=== PATIENT | female | born 1940 | race Caucasian/White ===

== ENCOUNTER 2019-08-19 11:15 | Inpatient (IN) | payer MEDICARE, BC ==
[2019-08-19] MEDS ORDERED: Sodium Chloride 0.9% 10 ML Syringe FLUSH PRN (11:28)
[2019-08-19] MEDS ORDERED: Diltiazem 50 MG/10 ML SDV IVPUSH ONE (11:29)
[2019-08-19] MEDS: Sodium Chloride 0.9% 1,000 ML IV SCH ×2 (11:54→19:42)
[2019-08-19] MEDS: Diltiazem 100 MG in Sodium Chloride 0.9% 100 ML IV SCH (11:58)
--- NOTE | 2019-08-19 13:31 | EDM.PDOC ---
ED HPI GENERAL MEDICAL PROBLEM - General Chief Complaint: Cardiovascular Problem Stated Complaint: RAPID PULSE, TIGHT THROAT Time Seen by Provider: 08/19/19 11:25 Source of Information: Reports: Patient History Limitations: Reports: No Limitations - History of Present Illness INITIAL COMMENTS - FREE TEXT/NARRATIVE: The patient presents with palpitations and shortness of breath. She said this has been coming and going for about a week. She has no chest pain but she did have like a lump in her throat with it. She has no fever, chills, cough, congestion, runny nose, abdominal pain, nausea or vomiting. She has known A- fib and is on blood thinners. Onset: Gradual Duration: Week(s): Severity: Mild Improves with: Reports: None Worsens with: Reports: None Associated Symptoms: Reports: No Other Symptoms - Related Data Allergies Allergy/AdvReac Type Severity Reaction Status Date / Time Hlsbcmk-Hug-Elf Reductase Allergy Severe Muscle Verified 08/19/19 11:31 Inhibitor Aches Home Meds: Home Meds Losartan Potassium 50 mg PO DAILY 09/30/15 [History] Apixaban [Eliquis] 5 mg PO BID 08/19/19 [History] Ezetimibe 10 mg PO DAILY 08/19/19 [History] Metoprolol Succinate 50 mg PO DAILY 08/19/19 [History] Zinc 50 mg PO DAILY 08/19/19 [History] Past Medical History Cardiovascular History: Reports: Afib, High Cholesterol, Hypertension Respiratory History: Reports: Pneumonia, Recurrent Psychiatric History: Reports: None Oncologic (Cancer) History: Reports: Basal Cell Carcinoma, Squamous Cell Carcinoma - Past Surgical History HEENT Surgical History: Reports: Adenoidectomy, Tonsillectomy ED ROS GENERAL - Review of Systems Review Of Systems: See Below Constitutional: Reports: No Symptoms HEENT: Reports: No Symptoms Respiratory: Reports: Shortness of Breath. Denies: Cough Cardiovascular: Reports: Palpitations. Denies: Chest Pain Endocrine: Reports: No Symptoms GI/Abdominal: Reports: No Symptoms : Reports: No Symptoms Musculoskeletal: Reports: No Symptoms ED EXAM, GENERAL - Physical Exam Exam: See Below Exam Limited By: No Limitations General Appearance: Alert, No Apparent Distress Ears: Normal External Exam Nose: Normal Inspection Head: Atraumatic, Normocephalic Neck: Normal Inspection Respiratory/Chest: No Respiratory Distress, Lungs Clear, Normal Breath Sounds Cardiovascular: Regular Rate, Rhythm, No Edema, No Murmur GI/Abdominal: Soft, Non-Tender, No Organomegaly, No Mass Back Exam: Normal Inspection Extremities: Normal Inspection EKG INTERPRETATION EKG Date: 08/19/19 Time: 11:46 Rhythm: A-Fib Rate (Beats/Min): 90 [place]: Normal QRS: Normal ST-T: Normal QT: Normal Course - Vital Signs Last Recorded V/S: Last Vital Signs Temp 98.0 F 08/19/19 11:27 Pulse 119 H 08/19/19 11:27 Resp 22 H 08/19/19 11:27 BP 149/110 H 08/19/19 11:27 Pulse Ox 95 08/19/19 11:27 - Orders/Labs/Meds Orders: Active Orders 24 hr Category Date Time Status Cardiac Monitoring [RC] . DIRECTED Care 08/19/19 11:28 Active EKG Documentation Completion [RC] STAT Care 08/19/19 11:29 Active Peripheral IV Care [RC] . DIRECTED Care 08/19/19 11:29 Active TSH [CHEM] Stat Lab 08/19/19 14:16 Ordered Diltiazem [Cardizem] 100 mg Med 08/19/19 11:30 Active Sodium Chloride 0.9% [Normal Saline] 100 ml IV TITRATE Sodium Chloride 0.9% [Normal Saline] 1,000 ml Med 08/19/19 11:30 Active IV ASDIRECTED Sodium Chloride 0.9% [Saline Flush] Med 08/19/19 11:28 Active 10 ml FLUSH ASDIRECTED PRN Peripheral IV Insertion Adult [OM.PC] Stat Oth 08/19/19 11:28 Ordered Medication Orders Diltiazem HCl 100 mg/ Sodium (Chloride) 100 mls @ 10 mls/hr IV TITRATE KYLEE; Protocol Last Admin: 08/19/19 11:58 Dose: 10 mg/hr, 10 mls/hr Sodium Chloride (Normal Saline) 1,000 mls @ 125 mls/hr IV ASDIRECTED KYLEE Last Admin: 08/19/19 11:54 Dose: 125 mls/hr Sodium Chloride (Saline Flush) 10 ml FLUSH ASDIRECTED PRN PRN Reason: Keep Vein Open Last Admin: 08/19/19 12:19 Dose: 10 ml Labs: Laboratory Tests 08/19/19 08/19/19 Range/Units 11:42 11:42 WBC 8.13 (3.98-10.04) K/mm3 RBC 5.06 (3.98-5.22) M/mm3 Hgb 15.7 (11.2-15.7) gm/dl Hct 47.1 H (34.1-44.9) % MCV 93.1 (79.4-94.8) fl MCH 31.0 (25.6-32.2) pg MCHC 33.3 (32.2-35.5) g/dl RDW Std Deviation 44.7 (36.4-46.3) fL Plt Count 194 (182-369) K/mm3 MPV 10.5 (9.4-12.3) fl Neut % (Auto) 74.0 H (34.0-71.1) % Lymph % (Auto) 17.3 L (19.3-51.7) % [place] % (Auto) 7.0 (4.7-12.5) % Eos % (Auto) 1.1 (0.7-5.8) Baso % (Auto) 0.5 (0.1-1.2) % Neut # (Auto) 6.01 (1.56-6.13) K/mm3 Lymph # (Auto) 1.41 (1.18-3.74) K/mm3 [place] # (Auto) 0.57 H (0.24-0.36) K/mm3 Eos # (Auto) 0.09 (0.04-0.36) K/mm3 Baso # (Auto) 0.04 (0.01-0.08) K/mm3 Sodium 140 (136-145) mEq/L Potassium 4.2 (3.5-5.1) mEq/L Chloride 104 (98-107) mEq/L Carbon Dioxide 24 (21-32) mEq/L Anion Gap 16.2 H (5-15) BUN 19 H (7-18) mg/dL Creatinine 0.7 (0.55-1.02) mg/dL Est Cr Clr Drug Dosing 60.01 mL/min Estimated GFR (MDRD) > 60 (>60) mL/min BUN/Creatinine Ratio 27.1 H (14-18) Glucose 121 H (83-115) mg/dL Calcium 9.1 (8.5-10.1) mg/dL Total Bilirubin 1.0 (0.2-1.0) mg/dL AST 30 (15-37) U/L ALT 54 (14-59) U/L Alkaline Phosphatase 91 (46-116) U/L Troponin I < 0.017 (0.00-0.056) ng/mL Total Protein 7.3 (6.4-8.2) g/dl Albumin 3.5 (3.4-5.0) g/dl Globulin 3.8 gm/dL Albumin/Globulin Ratio 0.9 L (1-2) Meds: Medications Generic Name Dose Route Start Last Admin Trade Name Freq PRN Reason Stop Dose Admin Diltiazem HCl 100 mg/ Sodium 100 mls @ 10 mls/hr 08/19/19 11:30 08/19/19 11: 58 Chloride IV 10 mg/hr TITRATE KYLEE 10 mls/hr Administration Protocol 10 MG/HR Sodium Chloride 1,000 mls @ 125 mls/hr 08/19/19 11:30 08/19/19 11:54 Normal Saline IV 125 mls/hr ASDIRECTED KYLEE Administration Sodium Chloride 10 ml 08/19/19 11:28 08/19/19 12:19 Saline Flush FLUSH 10 ml ASDIRECTED PRN Administration Keep Vein Open Discontinued Medications Generic Name Dose Route Start Last Admin Trade Name Freq PRN Reason Stop Dose Admin Diltiazem HCl 10 mg 08/19/19 11:29 08/19/19 11:54 Cardizem IVPUSH 08/19/19 11:30 10 mg ONETIME ONE Administration - Re-Assessments/Exams Free Text/Narrative Re-Assessment/Exam: 08/19/19 14:22 I ordered an IV NS at 125mL/hr, EKG, CXR and labs. Her EKG shows atrial fibrillation with no acute changes. Her CBC and CMP look good. Her troponin is negative. Her rate is better controlled but when she gets up her heart rate goes way up. I feel she needs to be admitted. I called Dr Mg and she agreed to the admission. Departure - Departure Time of Disposition: 14:25 Disposition: Admitted As Inpatient 64 Condition: Fair Clinical Impression: Atrial fibrillation with RVR Referrals: Shoshana Mitchell NP [Primary Care Provider] - Forms: ED Department Discharge Sepsis Event Note - Evaluation Sepsis Screening Result: No Definite Risk - Focused Exam Vital Signs: Vital Signs Temp Pulse Resp BP Pulse Ox 08/19/19 11:27 98.0 F 119 H 22 H 149/110 H 95 Date Exam was Performed: 08/19/19 Time Exam was Performed: 14:17 - My Orders Last 24 Hours: My Active Orders 08/19/19 11:28 Cardiac Monitoring [RC] . DIRECTED Sodium Chloride 0.9% [Saline Flush] 10 ml FLUSH ASDIRECTED PRN Peripheral IV Insertion Adult [OM.PC] Stat 08/19/19 11:29 EKG Documentation Completion [RC] STAT Peripheral IV Care [RC] . DIRECTED 08/19/19 11:30 Diltiazem [Cardizem] 100 mg Sodium Chloride 0.9% [Normal Saline] 100 ml IV TITRATE Sodium Chloride 0.9% [Normal Saline] 1,000 ml IV ASDIRECTED 08/19/19 14:16 TSH [CHEM] Stat - Assessment/Plan Last 24 Hours: My Active Orders 08/19/19 11:28 Cardiac Monitoring [RC] . DIRECTED Sodium Chloride 0.9% [Saline Flush] 10 ml FLUSH ASDIRECTED PRN Peripheral IV Insertion Adult [OM.PC] Stat 08/19/19 11:29 EKG Documentation Completion [RC] STAT Peripheral IV Care [RC] . DIRECTED 08/19/19 11:30 Diltiazem [Cardizem] 100 mg Sodium Chloride 0.9% [Normal Saline] 100 ml IV TITRATE Sodium Chloride 0.9% [Normal Saline] 1,000 ml IV ASDIRECTED 08/19/19 14:16 TSH [CHEM] Stat
--- NOTE | 2019-08-19 13:34 | CR ---
Chest: Portable view of the chest was obtained. Comparison: Prior chest x-ray of 09/30/15. Heart is slightly enlarged. Difficult to exclude minimal pulmonary vascular congestion. Lungs otherwise are clear. Bony structures are grossly intact. Impression: 1. Mild cardiomegaly. 2. Difficult to exclude minimal pulmonary vascular congestion. Diagnostic code #3 This report was dictated in MDT
[2019-08-19] MEDS ORDERED: Ondansetron 4 MG Tab.DIS PO PRN (14:33)
[2019-08-19] MEDS ORDERED: Acetaminophen 325 MG Tab PO PRN (14:33)
[2019-08-19] MEDS ORDERED: Ondansetron 4 MG/2 ML SDV IV PRN (14:33)
--- NOTE | 2019-08-19 14:43 | PCM.HP.2 ---
H&P History of Present Illness - General Date of Service: 08/19/19 Admit Problem/Dx: Admission Diagnosis/Problem Admission Diagnosis/Problem Afib, Atrial fibrillation - History of Present Illness Initial Comments - Free Text/Narative: This is an 78-year-old female with past medical history of paroxysmal atrial fibrillation and hypertension who comes to the ED complaining of worsening shortness of breath for the last 2 to 3 weeks. As per patient for the pa 2 to 3 weeks she has been feeling like her heart just "was not beating right" associated on occasion with a squeezing pressure in her throat that came and went. Once he noticed that this was not getting better she decided to come to the emergency department for further evaluation COVID risk - Has been participating in social distancing - Denies exposure to COVID patient - Denies fevers, chills, coughing, nasal congestion, abdominal discomfort, diarrhea. - Related Data Allergies/Adverse Reactions: Allergies Allergy/AdvReac Type Severity Reaction Status Date / Time [id number]-Pqd-Rbo Reductase Allergy Severe Muscle Verified 08/19/19 11:31 Inhibitor Aches Home Medications: Home Meds Losartan Potassium 50 mg PO DAILY 09/30/15 [History] Apixaban [Eliquis] 5 mg PO BID 08/19/19 [History] Ezetimibe 10 mg PO DAILY 08/19/19 [History] Metoprolol Succinate 50 mg PO DAILY 08/19/19 [History] Zinc 50 mg PO DAILY 08/19/19 [History] Past Medical History Cardiovascular History: Reports: Afib, High Cholesterol, Hypertension Respiratory History: Reports: Pneumonia, Recurrent Psychiatric History: Reports: None Oncologic (Cancer) History: Reports: Basal Cell Carcinoma, Squamous Cell Carcinoma - Past Surgical History HEENT Surgical History: Reports: Adenoidectomy, Tonsillectomy H&P Review of Systems - Review of Systems: Review Of Systems: See Below General: Reports: Fatigue. Denies: Fever, Chills, Malaise, Weakness, Night Sweats, Diaphoresis, Decreased Appetite, Weight Loss, Weight Gain HEENT: Denies: Contact Lenses, Dysphasia, Ear Pain, Eye Pain, Headaches, Hearing Changes, Rhinitis, Post Nasal Drip, Sinus Congestion, Sore Throat Pulmonary: Reports: Shortness of Breath. Denies: Wheezing, Pleuritic Chest Pain , Cough, Sputum, Hemoptysis, Other Cardiovascular: Reports: Palpitations, Dyspnea on Exertion, Other ([place] like her heart just was not beating right). Denies: Chest Pain, Orthopnea, PND, Edema, Lightheadedness, Syncope, Claudication, Blood Pressure Problem Gastrointestinal: Denies: Abdominal Pain, Anorexia, Black Stool, Bloody Stool, Constipation, Diarrhea, Decreased Appetite, Difficulty Swallowing, Distension, Flatus, Hematemesis, Hematochezia, Melena, Nausea, Vomiting Genitourinary: Denies: Dysuria, Frequency, Burning, Pain, Urgency, Incontinence Musculoskeletal: Denies: Joint Pain, Joint Swelling, Muscle Pain, Muscle Stiffness Skin: Denies: Cyanosis, Jaundice, Mottled, Pallor, Diaphoresis Psychiatric: Denies: Confusion, Depression, Mood Lability, Anxiety Neurological: Denies: Dizziness, Headache, Numbness, Paresthesia Exam - Exam Exam: See Below - Vital Signs Vital Signs: Last Vital Signs Temp 98.0 F 08/19/19 11:27 Pulse 119 H 08/19/19 11:27 Resp 22 H 08/19/19 11:27 BP 149/110 H 08/19/19 11:27 Pulse Ox 95 08/19/19 11:27 Weight: 63.503 kg - Exam Quality Assessment: No: Supplemental Oxygen General: Alert, Oriented, Cooperative. No: Mild Distress HEENT: Conjunctiva Clear, EOMI, Hearing Intact, Mucosa Moist & [place] Neck: Supple, Full Range of Motion Lungs: Clear to Auscultation, Normal Respiratory Effort. No: Crackles, Rales, Rhonchi, Rub, Wheezing Cardiovascular: Other (Rhythmic and synchronic with pulse, rate controlled, systolic murmur heard best at apex (nonradiating) III/) GI/Abdominal Exam: Normal Bowel Sounds, Soft, Non-Tender. No: Distended, Guarding, Rigid, Rebound Back Exam: Normal Inspection Extremities: Normal Inspection, Normal Range of Motion, Non-Tender Neuro Extensive - Mental Status: Alert, Oriented x3, Other (MiniCOG 3/3) Psychiatric: Alert, Normal Affect, Normal Mood. No: Anxious, Depressed, Agitated - Patient Data Result Diagrams: 08/19/19 11:42 08/19/19 11:42 Sepsis Event Note - Evaluation Sepsis Screening Result: No Definite Risk - Focused Exam Vital Signs: Vital Signs Temp Pulse Resp BP Pulse Ox 08/19/19 11:27 98.0 F 119 H 22 H 149/110 H 95 Date Exam was Performed: 08/19/19 Time Exam was Performed: 14:45 *Q Meaningful Use (ADM) - VTE *Q VTE Anticoagulation Contraindications: Medical/Procedure Contrai - Problem List (1) Atrial fibrillation with RVR SNOMED Code(s): 234429505141294 ICD Code: I48.91 - UNSPECIFIED ATRIAL FIBRILLATION Status: Acute Current Visit: Yes (2) Chronic anticoagulation SNOMED Code(s): 299349628 ICD Code: Z79.01 - LONG-TERM (CURRENT) USE OF ANTICOAGULANTS Status: Acute Current Visit: Yes (3) Hypertension SNOMED Code(s): 78421340 ICD Code: I10 - ESSENTIAL (PRIMARY) HYPERTENSION Status: Acute Current Visit: Yes (4) Dyslipidemia SNOMED Code(s): 131377868 ICD Code: E78.5 - HYPERLIPIDEMIA, UNSPECIFIED Status: Acute Current Visit : Yes Problem List Initiated/Reviewed/Updated: Yes Assessment/Plan Comment:: Atrial fibrillation with RVR Chronic anticoagulation with Eliquis Worsening shortness of breath for 2 to 3 weeks No recent changes in medications On metoprolol succinate twice daily and Eliquis at home Sees continuous drier operator Chelsey He at [facility], appointment next week Given diltiazem bolus in ED and started on drip PLAN - Continue diltiazem drip and taper down as tolerated - Continue home Eliquis - Request records for most recent echocardiogram, if not within the past 6 months we will order new one - Metoprolol will be held Hypertension BP on admission 149/110 Home management with Losartan PLAN - Continue home Losartan - PRN Hydralazine Dyslipidemia Home management with Ezetimibe PLAN - Continue home medications PROPHYLAXIS: DVT- Eliquis GI- not indicated CODE STATUS: FULL CODE DISPOSITION: Patient will be admitted to the ICU for diltiazem drip, will taper medication down depending on rate control and transition to oral diltiazem once this is achieved. SOCIAL: Lives with in a house in [place] Primary care physician is Dr. Akins Independent Living Instructor is Dr. Chelsey He at [facility] Is completely independent on ADLs and IADLs - Mortality Measure Prognosis:: Good
[2019-08-19] MEDS ORDERED: Diltiazem IR 60 MG Tab PO SCH (20:00)
[2019-08-19] MEDS: Apixaban 5 MG Tab PO SCH (20:23)
[2019-08-19] MEDS: Diltiazem IR 60 MG Tab PO SCH (20:24)
[2019-08-19] MEDS: Ezetimibe 10 MG Tab PO SCH ×2 (20:24→20:27)
[2019-08-20] MEDS: Diltiazem IR 60 MG Tab PO SCH ×4 (01:21→23:21)
[2019-08-20] MEDS: Sodium Chloride 0.9% 1,000 ML IV SCH (04:53)
[2019-08-20] MEDS: Losartan 25 MG Tab PO SCH (08:39)
[2019-08-20] MEDS: Apixaban 5 MG Tab PO SCH ×2 (08:39→20:26)
--- NOTE | 2019-08-20 13:47 | PCM.PN ---
- General Info Date of Service: 08/20/19 Subjective Update: Feeling OK Slept for about 3 hours, mainly because of noises and restless right leg Tolerating diet Ambulating BM today - Patient Data Vitals - Most Recent: Last Vital Signs Temp 97.6 F 08/20/19 12:00 Pulse 66 08/19/19 19:01 Resp 16 08/20/19 12:00 BP 145/89 H 08/20/19 12:37 Pulse Ox 96 08/20/19 12:00 Weight - Most Recent: 68.538 kg - Exam General: Alert, Oriented, Cooperative, No Acute Distress HEENT: Pupils Equal, Pupils Reactive, EOMI, Mucous Membr. Moist/[place] Neck: Supple, Trachea Midline, No JVD Lungs: Clear to Auscultation, Normal Respiratory Effort. No: Decreased Breath Sounds, Crackles, Rales, Rhonchi, Rub, Stridor, Wheezing Cardiovascular: Regular Rate, Regular Rhythm. No: Murmurs, Gallops, Rubs GI/Abdominal Exam: Normal Bowel Sounds, Soft, Non-Tender. No: Distended, Guarding, Rigid, Rebound Back Exam: Normal Inspection Extremities: Normal Inspection, Normal Range of Motion, No Pedal Edema Neurological: No New Focal Deficit Psy/Mental Status: Alert, Normal Affect, Normal Mood Sepsis Event Note - Evaluation Sepsis Screening Result: No Definite Risk - Problem List & Annotations (1) Atrial fibrillation with RVR SNOMED Code(s): 852112977338633 Code(s): I48.91 - UNSPECIFIED ATRIAL FIBRILLATION Status: Acute Current Visit: Yes (2) Chronic anticoagulation SNOMED Code(s): 327943978 Code(s): Z79.01 - FIRE SPRINKLER FITTER (CURRENT) USE OF ANTICOAGULANTS Status: Acute Current Visit: Yes (3) Hypertension SNOMED Code(s): 08165845 Code(s): I10 - ESSENTIAL (PRIMARY) HYPERTENSION Status: Acute Current Visit: Yes (4) Dyslipidemia SNOMED Code(s): 947146800 Code(s): E78.5 - HYPERLIPIDEMIA, UNSPECIFIED Status: Acute Current Visit : Yes - Problem List Review Problem List Initiated/Reviewed/Updated: Yes - Plan Plan:: Atrial fibrillation, rate controlled Chronic anticoagulation with Eliquis Worsening shortness of breath for 2 to 3 weeks No recent changes in medications On metoprolol succinate twice daily and Eliquis at home Sees home service advisor Chelsey He at [facility], appointment next week Given diltiazem bolus in ED and started on drip--> admitted to ICU on diltiazem drip that was tapered off later that evening Started on PO Diltiazem Rate controlled, HR trend 62-82 PLAN - Continue diltiazem drip and taper down as tolerated - Continue home Eliquis - New echocardiogram performed, pending report - Metoprolol will be held Hypertension BP on admission 149/110 MAP trend 90-104 Home management with Losartan PLAN - Continue home Losartan - PRN Hydralazine Dyslipidemia Home management with Ezetimibe PLAN - Continue home medications RVR, resolved PROPHYLAXIS: DVT- Eliquis GI- not indicated CODE STATUS: FULL CODE DISPOSITION: Patient was admitted to ICU for diltiazem drip, rate controlled and transitioned to PO Diltiazem. If stable in the next 24 hours, will discharge tomorrow.
[2019-08-20] MEDS ORDERED: Diltiazem 50 MG/10 ML SDV IVPUSH ONE (15:24)
--- NOTE | 2019-08-20 15:35 | CR ---
Chest: Portable view of the chest was obtained. Comparison: Prior chest x-ray of 08/19/19. Increased central lung markings are seen from prior study most likely representing pulmonary vascular congestion. Heart is felt to be slightly enlarged. Possible small pleural effusions are now noted. Bony structures are grossly intact. Impression: 1. Findings suspicious for development of CHF. Diagnostic code #3 This report was dictated in MDT
[2019-08-20] MEDS: Diltiazem 100 MG in Sodium Chloride 0.9% 100 ML IV SCH (15:51)
[2019-08-20] MEDS: Ezetimibe 10 MG Tab PO SCH (17:46)
[2019-08-21] MEDS: Diltiazem 100 MG in Sodium Chloride 0.9% 100 ML IV SCH (02:04)
[2019-08-21] MEDS: Diltiazem IR 60 MG Tab PO SCH (03:43)
[2019-08-21] MEDS: Diltiazem IR 30 MG Tab PO SCH ×3 (08:27→20:13)
[2019-08-21] MEDS: Losartan 25 MG Tab PO SCH (08:27)
[2019-08-21] MEDS: Apixaban 5 MG Tab PO SCH ×2 (08:28→20:13)
--- NOTE | 2019-08-21 13:47 | PCM.PN ---
- General Info Date of Service: 08/21/19 Subjective Update: Feeling a lot better Slept better Tolerating diet No chest pain or palpitations, still get winded when going to restroom - Patient Data Vitals - Most Recent: Last Vital Signs Temp 97.8 F 08/21/19 12:00 Pulse 75 08/21/19 06:31 Resp 16 08/21/19 12:00 BP 134/69 08/21/19 12:00 Pulse Ox 95 08/21/19 12:00 Weight - Most Recent: 68.039 kg - Exam Quality Assessment: Supplemental Oxygen General: Alert, Oriented, Cooperative, No Acute Distress HEENT: Pupils Equal, Pupils Reactive, EOMI, Mucous Membr. Moist/[place] Neck: Supple, Trachea Midline, No Thyromegaly. No: Lymphadenopathy Lungs: Clear to Auscultation, Normal Respiratory Effort. No: Crackles, Rales, Rhonchi, Rub, Stridor, Wheezing Cardiovascular: Regular Rate, Irregular Rhythm. No: Murmurs, Gallops, Rubs GI/Abdominal Exam: Normal Bowel Sounds, Soft, Non-Tender. No: Distended, Guarding, Rigid Extremities: Normal Inspection, Normal Range of Motion Peripheral Pulses: 3+: Brachial (L), Brachial (R), Dorsalis Pedis (L), Dorsalis Pedis (R) Skin: Warm, Dry Neurological: No New Focal Deficit Psy/Mental Status: Alert, Normal Affect, Normal Mood Sepsis Event Note - Evaluation Sepsis Screening Result: No Definite Risk - Problem List & Annotations (1) Atrial fibrillation with RVR SNOMED Code(s): 688386224637269 Code(s): I48.91 - UNSPECIFIED ATRIAL FIBRILLATION Status: Acute Current Visit: Yes (2) Chronic anticoagulation SNOMED Code(s): 373882162 Code(s): Z79.01 - COLORER (CURRENT) USE OF ANTICOAGULANTS Status: Acute Current Visit: Yes (3) Hypertension SNOMED Code(s): 44040012 Code(s): I10 - ESSENTIAL (PRIMARY) HYPERTENSION Status: Acute Current Visit: Yes (4) Dyslipidemia SNOMED Code(s): 394453771 Code(s): E78.5 - HYPERLIPIDEMIA, UNSPECIFIED Status: Acute Current Visit : Yes (5) Moderate to severe pulmonary hypertension SNOMED Code(s): 89724848 Code(s): I27.20 - PULMONARY HYPERTENSION, UNSPECIFIED Status: Acute Current Visit: Yes (6) Severe mitral valve regurgitation SNOMED Code(s): 84766811 Code(s): I34.0 - NONRHEUMATIC MITRAL (VALVE) INSUFFICIENCY Status: Acute Current Visit: Yes (7) Acute hypoxemic respiratory failure SNOMED Code(s): 334745749 Code(s): J96.01 - ACUTE RESPIRATORY FAILURE WITH HYPOXIA Status: Acute Current Visit: Yes - Problem List Review Problem List Initiated/Reviewed/Updated: Yes - Assessment Assessment:: 08/18 - Worsening shortness of breath for 2 to 3 weeks - No recent changes in medications - On metoprolol succinate twice daily and Eliquis at home - Sees grain shipper Chelsey He at [facility], appointment next week - Given diltiazem bolus in ED and started on drip--> admitted to ICU on diltiazem drip that was tapered off later that evening and started on PO 60 QID - Echocardiogram performed 08/19 - Rate controlled overnight --> OK to downgrade to floor - Transferred to [facility] and approximately 3-4 hours later patient started getting tachycardic again and complaining of same throat discomfort - Given IV diltiazem again - Transferred back to ICU for Diltiazem drip - Significantly hypoxemic, increased NC to 4L - Echocardiogram resulted with - Severe pulmonary hypertension, RVSP >75 - Severe biatrial dilation - Sever mitral valve regurgitation 08/20 - Drip discontinued early in AM - Transitioned to 90mg PO QID - Patient has history highly suggestive of ELAINA-->will recommend sleep study as an outpatient - Sees grain shipper Chelsey He at [facility], appointment 08/28 - Plan Plan:: Paroxysmal atrial fibrillation, RVR Chronic anticoagulation with Eliquis Acute hypoxemic respiratory failure Severe pulmonary hypertension Severe mitral regurgitation - Diltiazem 90mg PO QID - Continue Eliquis - Taper down O2 as tolerated - 6MWT tomorrow Hypertension BP on admission 149/110 MAP trend 75-101 Home management with Losartan PLAN - Continue home Losartan - PRN Hydralazine Dyslipidemia Home management with Ezetimibe PLAN - Continue home medications PROPHYLAXIS: DVT- Eliquis GI- not indicated CODE STATUS: FULL CODE DISPOSITION: Patient was admitted to ICU for diltiazem drip, rate controlled and transitioned to PO Diltiazem, reverted back and placed on drip again, transitioned to PO again today.
[2019-08-21] MEDS: Ezetimibe 10 MG Tab PO SCH (17:24)
[2019-08-22] MEDS: Diltiazem IR 30 MG Tab PO SCH ×3 (02:08→13:55)
[2019-08-22] MEDS: Apixaban 5 MG Tab PO SCH ×2 (08:03→20:14)
[2019-08-22] MEDS: Losartan 25 MG Tab PO SCH (08:06)
--- NOTE | 2019-08-22 12:05 | PCM.PN ---
- General Info Date of Service: 08/22/19 Admission Dx/Problem (Free Text): Admission Diagnosis/Problem Admission Diagnosis/Problem Afib, Atrial fibrillation Subjective Update: Patient is feeling much better. She denies any chest tightness or pain. She denies any palpitations. She is eating well and had a bowel movement this morning. - Review of Systems General: Reports: No Symptoms HEENT: Reports: No Symptoms Pulmonary: Reports: No Symptoms Cardiovascular: Reports: No Symptoms Gastrointestinal: Reports: No Symptoms Musculoskeletal: Reports: No Symptoms Neurological: Reports: No Symptoms Psychiatric: Reports: No Symptoms - Patient Data Vitals - Most Recent: Last Vital Signs Temp 97.3 F 08/22/19 08:00 Pulse 85 08/22/19 08:00 Resp 16 08/22/19 08:00 BP 147/64 H 08/22/19 08:06 Pulse Ox 92 L 08/22/19 10:50 Orthostatic Blood Pressure [ 149/77 Standing] Orthostatic Blood Pressure [ 145/80 Sitting] Orthostatic Blood Pressure [ 151/80 Supine] Weight - Most Recent: 146 lb 3.2 oz I&O - Last 24 Hours: Intake & Output 08/21/19 08/22/19 08/22/19 22:59 06:59 14:59 Intake Total 880 600 540 Balance 880 600 540 Med Orders - Current: Current Medications Acetaminophen (Tylenol) 650 mg PO Q4H PRN PRN Reason: Pain (Mild 1-3)/fever Apixaban (Eliquis) 5 mg PO BID [facility] Last Admin: 08/22/19 08:03 Dose: 5 mg Diltiazem HCl (Cardizem) 90 mg PO Q6H [facility] Last Admin: 08/22/19 08:06 Dose: 90 mg Ezetimibe (Zetia) 10 mg PO QPM [facility] Last Admin: 08/21/19 17:24 Dose: 10 mg Diltiazem HCl 100 mg/ Sodium (Chloride) 100 mls @ 10 mls/hr IV TITRATE [facility]; Protocol Last Titration: 08/21/19 05:35 Dose: 0 mg/hr, 0 mls/hr Losartan Potassium (Cozaar) 50 mg PO DAILY [facility] Last Admin: 08/22/19 08:06 Dose: 50 mg Metoprolol Succinate (Toprol Xl) 50 mg PO DAILY [facility] Ondansetron HCl (Zofran Odt) 4 mg PO Q6H PRN PRN Reason: nausea, able to take PO Ondansetron HCl (Zofran) 4 mg IV Q6H PRN PRN Reason: Nausea/Vomiting Sodium Chloride (Saline Flush) 10 ml FLUSH ASDIRECTED PRN PRN Reason: Keep Vein Open Last Admin: 08/19/19 12:19 Dose: 10 ml Discontinued Medications Diltiazem HCl (Cardizem) 10 mg IVPUSH ONETIME ONE Stop: 08/19/19 11:30 Last Admin: 08/19/19 11:54 Dose: 10 mg Diltiazem HCl (Cardizem) 60 mg PO Q6HR [facility] Last Admin: 08/19/19 21:21 Dose: Not Given Diltiazem HCl (Cardizem) 60 mg PO Q6H [facility] Last Admin: 08/21/19 03:43 Dose: 60 mg Diltiazem HCl (Cardizem) 20 mg IVPUSH ONETIME ONE Stop: 08/20/19 15:25 Last Admin: 08/20/19 15:26 Dose: 20 mg Sodium Chloride (Normal Saline) 1,000 mls @ 125 mls/hr IV ASDIRECTED [facility] Last Admin: 08/20/19 04:53 Dose: 125 mls/hr - Exam Quality Assessment: Supplemental Oxygen General: Alert, Oriented HEENT: Pupils Equal, Mucous Membr. Moist/[place] Neck: Supple Lungs: Normal Respiratory Effort, Crackles Cardiovascular: Irregular Rhythm. No: Regular Rate GI/Abdominal Exam: Normal Bowel Sounds, Soft, Non-Tender, No Organomegaly, No Distention, No Abnormal Bruit, No Mass Back Exam: Normal Inspection, Full Range of Motion Extremities: Normal Inspection, No Pedal Edema, Normal Capillary Refill Skin: Warm, Dry, Intact Psy/Mental Status: Alert, Normal Affect, Normal Mood Sepsis Event Note - Evaluation Sepsis Screening Result: No Definite Risk - Focused Exam Vital Signs: Vital Signs Temp Pulse Pulse Resp BP BP Pulse Ox 08/22/19 10:50 08/22/19 10:38 08/22/19 08:06 147/64 H 08/22/19 08:00 97.3 F 85 16 147/64 H 98 08/22/19 06:00 67 95 08/22/19 05:46 80 131/62 98 08/22/19 05:45 80 96 08/22/19 05:00 57 L 92 L 08/22/19 04:00 97.8 F 16 96/48 L 95 08/22/19 03:00 76 95 08/22/19 02:00 78 94 L 08/22/19 01:00 70 97 08/22/19 00:00 97.9 F 14 142/66 H 96 Pulse Ox Pulse Ox 08/22/19 10:50 92 L 08/22/19 10:38 97 08/22/19 08:06 08/22/19 08:00 08/22/19 06:00 08/22/19 05:46 08/22/19 05:45 08/22/19 05:00 08/22/19 04:00 08/22/19 03:00 08/22/19 02:00 08/22/19 01:00 08/22/19 00:00 Date Exam was Performed: 08/22/19 Time Exam was Performed: 11:59 - Problem List Review Problem List Initiated/Reviewed/Updated: Yes - My Orders Last 24 Hours: My Active Orders 08/22/19 11:41 Patient Status [ADT] Routine 08/23/19 09:00 Metoprolol Succinate [Toprol XL] 50 mg PO DAILY - Assessment Assessment:: 08/18 - Worsening shortness of breath for 2 to 3 weeks - No recent changes in medications - On metoprolol succinate twice daily and Eliquis at home - Sees ammunition storekeeper Chelsey He at [facility], appointment next week - Given diltiazem bolus in ED and started on drip--> admitted to ICU on diltiazem drip that was tapered off later that evening and started on PO 60 QID - Echocardiogram performed 08/19 - Rate controlled overnight --> OK to downgrade to floor - [facility] and approximately 3-4 hours later patient started getting tachycardic again and complaining of same throat discomfort - Given IV diltiazem again - Transferred back to ICU for Diltiazem drip - Significantly hypoxemic, increased NC to 4L - Echocardiogram resulted with -Left ventricular ejection fraction, by visual estimation, is 35 to 40% - Severe pulmonary hypertension, RVSP >75 - Severe biatrial dilation - Sever mitral valve regurgitation 08/20 - Drip discontinued early in AM - Transitioned to 90mg PO QID - Patient has history highly suggestive of ELAINA-->will recommend sleep study as an outpatient - Sees ammunition storekeeper Chelsey He at [facility], appointment 08/28 08/21 -Currently on Cardizem 90 mg 4 times daily -Spoke with Ronni He NP in cardiology. Recommendation is to switch her metoprolol to Toprol-XL 50 mg daily and Cardizem to 24 hr. -Respiratory therapy weaned off her O2 and patient is doing well. - Plan Plan:: Paroxysmal atrial fibrillation, RVR Chronic anticoagulation with Eliquis Acute hypoxemic respiratory failure Severe pulmonary hypertension Severe mitral regurgitation - Diltiazem 24-hour 360 mg PO nightly -Start Toprol XL 50 mg daily - Continue Eliquis -Changed to MedSurg status Hypertension BP on admission 149/110 Home management with Losartan PLAN - Continue home Losartan - PRN Hydralazine Dyslipidemia Home management with Ezetimibe PLAN - Continue home medications PROPHYLAXIS: DVT- Eliquis GI- not indicated CODE STATUS: FULL CODE DISPOSITION: Patient was admitted to ICU for diltiazem drip, rate controlled and transitioned to PO Diltiazem, reverted back and placed on drip again, transitioned to PO again. Length of stay greater than 96 hours secondary to difficulty controlling rate.
[2019-08-22] MEDS: Ezetimibe 10 MG Tab PO SCH (17:01)
[2019-08-22] MEDS ORDERED: Diltiazem 180 MG Cap.CD PO SCH (20:00)
[2019-08-22] MEDS: Diltiazem 180 MG Cap.CD PO SCH ×2 (20:14)
[2019-08-23] MEDS: Metoprolol Succinate 50 MG Tab.ER PO SCH (08:50)
[2019-08-23] MEDS: Losartan 25 MG Tab PO SCH (08:52)
[2019-08-23] MEDS: Apixaban 5 MG Tab PO SCH ×2 (08:52→20:14)
--- NOTE | 2019-08-23 15:15 | PCM.PN ---
- General Info Date of Service: 08/23/19 Admission Dx/Problem (Free Text): Admission Diagnosis/Problem Admission Diagnosis/Problem Afib, Atrial fibrillation Subjective Update: Patient states that she is feeling well. She is having no chest pain or palpitations. Appetite is good. This morning she was started on Toprol-XL 50 mg daily. Her heart rate starting around 1100 hrs. dropped down to 50. Throughout the early afternoon heart rate has consistently been in the low 50s to upper 40s. She is asymptomatic without complaints of shortness of breath, chest pain, or fatigue. Functional Status: Reports: Pain Controlled - Review of Systems General: Reports: No Symptoms HEENT: Reports: No Symptoms Pulmonary: Reports: No Symptoms Cardiovascular: Reports: No Symptoms Gastrointestinal: Reports: No Symptoms Musculoskeletal: Reports: No Symptoms Neurological: Reports: No Symptoms - Patient Data Vitals - Most Recent: Last Vital Signs Temp 97.3 F 08/23/19 08:53 Pulse 51 L 08/23/19 11:15 Resp 18 08/23/19 08:53 BP 135/75 08/23/19 08:53 Pulse Ox 96 08/23/19 11:15 Orthostatic Blood Pressure [ 149/77 Standing] Orthostatic Blood Pressure [ 145/80 Sitting] Orthostatic Blood Pressure [ 151/80 Supine] Weight - Most Recent: 146 lb 11.2 oz I&O - Last 24 Hours: Intake & Output 08/23/19 08/23/19 08/23/19 06:59 14:59 22:59 Intake Total 400 680 Balance 400 680 Lab Results Last 24 Hours: Laboratory Results - last 24 hr 08/23/19 08/23/19 Range/Units 05:42 05:42 WBC 6.74 (3.98-10.04) K/mm3 RBC 4.82 (3.98-5.22) M/mm3 Hgb 14.6 (11.2-15.7) gm/dl Hct 44.9 (34.1-44.9) % MCV 93.2 (79.4-94.8) fl MCH 30.3 (25.6-32.2) pg MCHC 32.5 (32.2-35.5) g/dl RDW Std Deviation 44.8 (36.4-46.3) fL Plt Count 207 (182-369) K/mm3 MPV 10.1 (9.4-12.3) fl Neut % (Auto) 59.7 (34.0-71.1) % Lymph % (Auto) 26.9 (19.3-51.7) % [place] % (Auto) 9.6 (4.7-12.5) % Eos % (Auto) 3.1 (0.7-5.8) Baso % (Auto) 0.6 (0.1-1.2) % Neut # (Auto) 4.02 (1.56-6.13) K/mm3 Lymph # (Auto) 1.81 (1.18-3.74) K/mm3 [place] # (Auto) 0.65 H (0.24-0.36) K/mm3 Eos # (Auto) 0.21 (0.04-0.36) K/mm3 Baso # (Auto) 0.04 (0.01-0.08) K/mm3 Sodium 141 (136-145) mEq/L Potassium 3.9 (3.5-5.1) mEq/L Chloride 106 (98-107) mEq/L Carbon Dioxide 27 (21-32) mEq/L Anion Gap 11.9 (5-15) BUN 13 (7-18) mg/dL Creatinine 0.7 (0.55-1.02) mg/dL Est Cr Clr Drug Dosing 60.01 mL/min Estimated GFR (MDRD) > 60 (>60) mL/min BUN/Creatinine Ratio 18.6 H (14-18) Glucose 110 (83-115) mg/dL Calcium 9.0 (8.5-10.1) mg/dL Magnesium 2.1 (1.8-2.4) mg/dl Total Bilirubin 1.0 (0.2-1.0) mg/dL AST 20 (15-37) U/L ALT 30 (14-59) U/L Alkaline Phosphatase 79 (46-116) U/L Total Protein 6.7 (6.4-8.2) g/dl Albumin 3.0 L (3.4-5.0) g/dl Globulin 3.7 gm/dL Albumin/Globulin Ratio 0.8 L (1-2) Med Orders - Current: Current Medications Acetaminophen (Tylenol) 650 mg PO Q4H PRN PRN Reason: Pain (Mild 1-3)/fever Apixaban (Eliquis) 5 mg PO BID [facility] Last Admin: 08/23/19 08:52 Dose: 5 mg Diltiazem HCl (Cardizem Cd) 240 mg PO BEDTIME [facility] Ezetimibe (Zetia) 10 mg PO QPM [facility] Last Admin: 08/22/19 17:01 Dose: 10 mg Diltiazem HCl 100 mg/ Sodium (Chloride) 100 mls @ 10 mls/hr IV TITRATE [facility]; Protocol Last Titration: 08/21/19 05:35 Dose: 0 mg/hr, 0 mls/hr Losartan Potassium (Cozaar) 50 mg PO DAILY [facility] Last Admin: 08/23/19 08:52 Dose: 50 mg Metoprolol Succinate (Toprol Xl) 50 mg PO DAILY [facility] Last Admin: 08/23/19 08:50 Dose: 50 mg Ondansetron HCl (Zofran Odt) 4 mg PO Q6H PRN PRN Reason: nausea, able to take PO Ondansetron HCl (Zofran) 4 mg IV Q6H PRN PRN Reason: Nausea/Vomiting Sodium Chloride (Saline Flush) 10 ml FLUSH ASDIRECTED PRN PRN Reason: Keep Vein Open Last Admin: 08/19/19 12:19 Dose: 10 ml Discontinued Medications Diltiazem HCl (Cardizem) 10 mg IVPUSH ONETIME ONE Stop: 08/19/19 11:30 Last Admin: 08/19/19 11:54 Dose: 10 mg Diltiazem HCl (Cardizem) 60 mg PO Q6HR [facility] Last Admin: 08/19/19 21:21 Dose: Not Given Diltiazem HCl (Cardizem) 60 mg PO Q6H [facility] Last Admin: 08/21/19 03:43 Dose: 60 mg Diltiazem HCl (Cardizem) 20 mg IVPUSH ONETIME ONE Stop: 08/20/19 15:25 Last Admin: 08/20/19 15:26 Dose: 20 mg Diltiazem HCl (Cardizem) 90 mg PO Q6H [facility] Stop: 08/22/19 15:00 Last Admin: 08/22/19 13:55 Dose: 90 mg Diltiazem HCl (Cardizem Cd) 360 mg PO DAILY [facility] Diltiazem HCl (Cardizem Cd) 360 mg PO BEDTIME [facility] Last Admin: 08/22/19 20:14 Dose: 360 mg Sodium Chloride (Normal Saline) 1,000 mls @ 125 mls/hr IV ASDIRECTED [facility] Last Admin: 08/20/19 04:53 Dose: 125 mls/hr - Exam General: Alert, Oriented HEENT: Pupils Equal, Mucous Membr. Moist/[place] Neck: Supple Lungs: Clear to Auscultation, Normal Respiratory Effort Cardiovascular: Irregular Rhythm. No: Regular Rate GI/Abdominal Exam: Normal Bowel Sounds, Soft, Non-Tender, No Organomegaly, No Distention, No Abnormal Bruit, No Mass Extremities: Normal Inspection, Normal Range of Motion, Non-Tender, No Pedal Edema, Normal Capillary Refill Sepsis Event Note - Evaluation Sepsis Screening Result: No Definite Risk - Focused Exam Vital Signs: Vital Signs Temp Pulse Pulse Resp BP BP BP 08/23/19 11:15 51 L 08/23/19 11:00 54 L 08/23/19 10:45 70 08/23/19 10:30 67 08/23/19 10:15 71 08/23/19 10:02 76 08/23/19 09:45 70 08/23/19 09:30 75 08/23/19 09:18 82 08/23/19 09:00 72 08/23/19 08:53 97.3 F 83 18 135/75 08/23/19 08:52 80 135/75 08/23/19 08:51 81 08/23/19 08:50 84 135/75 08/23/19 08:45 109 H 08/23/19 08:30 89 08/23/19 08:15 96 08/23/19 08:00 103 H 08/23/19 07:45 79 08/23/19 07:30 79 08/23/19 07:22 102 H 08/23/19 07:00 72 08/23/19 06:45 66 08/23/19 06:30 76 08/23/19 06:15 72 08/23/19 06:00 72 08/23/19 05:45 72 08/23/19 05:30 72 08/23/19 05:15 77 08/23/19 05:00 83 08/23/19 04:48 134/62 08/23/19 04:47 75 08/23/19 04:45 74 08/23/19 04:30 46 L 08/23/19 04:15 58 L 08/23/19 04:00 97.2 F 68 16 134/62 08/23/19 03:45 77 08/23/19 03:30 62 Pulse Ox 08/23/19 11:15 96 08/23/19 11:00 96 08/23/19 10:45 97 08/23/19 10:30 95 08/23/19 10:15 96 08/23/19 10:02 95 08/23/19 09:45 96 08/23/19 09:30 96 08/23/19 09:18 96 08/23/19 09:00 98 08/23/19 08:53 0 L 08/23/19 08:52 97 08/23/19 08:51 98 08/23/19 08:50 08/23/19 08:45 86 L 08/23/19 08:30 98 08/23/19 08:15 98 08/23/19 08:00 96 08/23/19 07:45 96 08/23/19 07:30 96 08/23/19 07:22 97 08/23/19 07:00 98 08/23/19 06:45 92 L 08/23/19 06:30 95 08/23/19 06:15 94 L 08/23/19 06:00 92 L 08/23/19 05:45 95 08/23/19 05:30 95 08/23/19 05:15 94 L 08/23/19 05:00 95 08/23/19 04:48 08/23/19 04:47 96 08/23/19 04:45 96 08/23/19 04:30 89 L 08/23/19 04:15 94 L 08/23/19 04:00 94 L 08/23/19 03:45 89 L 08/23/19 03:30 88 L Date Exam was Performed: 08/23/19 Time Exam was Performed: 15:36 - Problem List Review Problem List Initiated/Reviewed/Updated: Yes - My Orders Last 24 Hours: My Active Orders 08/22/19 15:11 Overnight Pulse Oximetry [RC] Click to Edit 08/22/19 20:00 Diltiazem [Cardizem CD] 360 mg PO BEDTIME 08/23/19 09:00 Metoprolol Succinate [Toprol XL] 50 mg PO DAILY 08/23/19 21:00 Diltiazem [Cardizem CD] 240 mg PO BEDTIME - Assessment Assessment:: 08/18 - Worsening shortness of breath for 2 to 3 weeks - No recent changes in medications - On metoprolol succinate twice daily and Eliquis at home - Sees development specialist Chelsey He at [facility], appointment next week - Given diltiazem bolus in ED and started on drip--> admitted to ICU on diltiazem drip that was tapered off later that evening and started on PO 60 QID - Echocardiogram performed 08/19 - Rate controlled overnight --> OK to downgrade to floor - [facility] and approximately 3-4 hours later patient started getting tachycardic again and complaining of same throat discomfort - Given IV diltiazem again - Transferred back to ICU for Diltiazem drip - Significantly hypoxemic, increased NC to 4L - Echocardiogram resulted with -Left ventricular ejection fraction, by visual estimation, is 35 to 40% - Severe pulmonary hypertension, RVSP >75 - Severe biatrial dilation - Sever mitral valve regurgitation 08/20 - Drip discontinued early in AM - Transitioned to 90mg PO QID - Patient has history highly suggestive of ELAINA-->will recommend sleep study as an outpatient - Sees development specialist Chelsey He at [facility], appointment 08/28 08/21 -Currently on Cardizem 90 mg 4 times daily -Spoke with Ronni He NP in cardiology. Recommendation is to switch her metoprolol to Toprol-XL 50 mg daily and Cardizem to 24 hr. -Respiratory therapy weaned off her O2 and patient is doing well. 08/22 -Currently on Cardizem CD 360 mg at bedtime and metoprolol succinate 50 mg in the morning. -Heart rate this afternoon is in the low 50s and upper 40s. -Decision to keep patient 1 more day to decrease tonight's Cardizem. - Plan Plan:: Paroxysmal atrial fibrillation, RVR Chronic anticoagulation with Eliquis Acute hypoxemic respiratory failure Severe pulmonary hypertension Severe mitral regurgitation -Change diltiazem 24-hour 240 mg PO nightly -Toprol XL 50 mg AM - Continue Eliquis - MedSurg status Hypertension BP on admission 135/75 Home management with Losartan PLAN - Continue home Losartan - PRN Hydralazine Dyslipidemia Home management with Ezetimibe PLAN - Continue home medications PROPHYLAXIS: DVT- Eliquis GI- not indicated CODE STATUS: FULL CODE DISPOSITION: Plan discharge for tomorrow. Length of stay greater than 96 hours secondary to difficulty controlling rate.
[2019-08-23] MEDS: Ezetimibe 10 MG Tab PO SCH (18:36)
[2019-08-23] MEDS ORDERED: Diltiazem 240 MG Cap.ER PO SCH (21:00)
[2019-08-24] MEDS: Metoprolol Succinate 50 MG Tab.ER PO SCH (08:39)
[2019-08-24] MEDS: Losartan 25 MG Tab PO SCH (08:41)
[2019-08-24 08:42] VITALS: BP 141/70
[2019-08-24] MEDS: Apixaban 5 MG Tab PO SCH (08:42)
[2019-08-24 10:29] VITALS: PULSE 80
--- NOTE | 2019-08-24 11:42 | PCM.DCSUM1 ---
Discharge Summary - Hospital Course HPI Initial Comments: This is an 78-year-old female with past medical history of paroxysmal atrial fibrillation and hypertension who comes to the ED complaining of worsening shortness of breath for the last 2 to 3 weeks. As per patient for the pa 2 to 3 weeks she has been feeling like her heart just "was not beating right" associated on occasion with a squeezing pressure in her throat that came and went. Once he noticed that this was not getting better she decided to come to the emergency department for further evaluation Diagnosis: Stroke: No - Discharge Data Discharge Date: 08/24/19 Discharge Disposition: Home, Self-Care 01 Condition: Good - Referral to Home Health Primary Care Physician: Shoshana Mitchell NP - Discharge Diagnosis/Problem(s) (1) Atrial fibrillation with RVR SNOMED Code(s): [id number] ICD Code: I48.91 - UNSPECIFIED ATRIAL FIBRILLATION Status: Acute - Patient Summary/Data Hospital Course: 08/18 - Worsening shortness of breath for 2 to 3 weeks - No recent changes in medications - On metoprolol succinate twice daily and Eliquis at home - Sees flaker tender Chelsey He at , appointment next week - Given diltiazem bolus in ED and started on drip--> admitted to ICU on diltiazem drip that was tapered off later that evening and started on PO 60 QID - Echocardiogram performed 08/19 - Rate controlled overnight --> OK to downgrade to floor - Transferred to floo and approximately 3-4 hours later patient started getting tachycardic again and complaining of same throat discomfort - Given IV diltiazem again - Transferred back to ICU for Diltiazem drip - Significantly hypoxemic, increased NC to 4L - Echocardiogram resulted with -Left ventricular ejection fraction, by visual estimation, is 35 to 40% - Severe pulmonary hypertension, RVSP >75 - Severe biatrial dilation - Sever mitral valve regurgitation 08/20 - Drip discontinued early in AM - Transitioned to 90mg PO QID - Patient has history highly suggestive of ELAINA-->will recommend sleep study as an outpatient - Sees flaker tender Chelsey He at , appointment 08/28 08/21 -Currently on Cardizem 90 mg 4 times daily -Spoke with Ronni He NP in cardiology. Recommendation is to switch her metoprolol to Toprol-XL 50 mg daily and Cardizem to 24 hr. -Respiratory therapy weaned off her O2 and patient is doing well. 08/22 -Currently on Cardizem CD 360 mg at bedtime and metoprolol succinate 50 mg in the morning. -Heart rate this afternoon is in the low 50s and upper 40s. -Decision to keep patient 1 more day to decrease tonight's Cardizem. 08/23 -Decrease Cardizem CD to 240 last night. -Patient still had heart rate in the 40s this morning. -Most heart rates are between 60s and 70s. -Plan discharge patient on a lower dose of Cardizem CD at 180 mg at night. -Continue metoprolol succinate 50 mg in the morning. -She will follow-up with primary care next week and cardiology the week after. -Patient was found to have hypoxemia at night. She has a high likelihood of having sleep apnea. Patient was discharged with home O2. - Patient Instructions Diet: Heart Healthy Diet Activity: As Tolerated Driving: May Drive Today Showering/Bathing: May Shower Other/Special Instructions: You were started on new medicine: Diltiazem 24-hour 180 mg at bedtime. Continue on metoprolol succinate 50 mg in the morning. If you develop any symptoms of palpitations, racing heart, lightheadedness, fatigue , chest pain, or shortness of breath please return to the emergency room. Follow-up with your primary care provider next week and with Chelsey eH NP in cardiology in 2 weeks. You were also found to have low oxygen saturations when you sleep. We have prescribed oxygen for you while you sleep. You also may need a sleep study. - Discharge Plan *PRESCRIPTION DRUG MONITORING PROGRAM REVIEWED*: No *COPY OF PRESCRIPTION DRUG MONITORING REPORT IN PATIENT PHILLY: No Prescriptions/Med Rec: dilTIAZem HCL [Diltiazem 24Hr ER] 180 mg PO BEDTIME #30 cap.sa.24h Metoprolol Succinate [Toprol XL 50mg] 50 mg PO DAILY #30 tab.er Home Medications: Home Meds Losartan Potassium 50 mg PO QPM 09/30/15 [History] Apixaban [Eliquis] 5 mg PO BID 08/19/19 [History] Ezetimibe 10 mg PO DAILY 08/19/19 [History] Metoprolol Succinate 50 mg PO BID 08/19/19 [History] Metoprolol Succinate [Toprol XL 50mg] 50 mg PO DAILY #30 tab.er 08/24/19 [Rx] dilTIAZem HCL [Diltiazem 24Hr ER] 180 mg PO BEDTIME #30 cap.sa.24h 08/24/19 [Rx] Oxygen Therapy Mode: Nasal Cannula (At night) Patient Handouts: Atrial Fibrillation, [id number] Forms: ED Department Discharge Referrals: Shoshana Mitchell NP [Primary Care Provider] - Wendi He NP [Ordering Only Provider] - (Keep your follow up appt. with cardiology as is.) - Discharge Summary/Plan Comment DC Time >30 min.: Yes Discharge Summary/Plan Comment: Discharged home in good condition. Follow-up with primary care next week and cardiology a week after. - General Info Date of Service: 08/24/19 Admission Dx/Problem (Free Text: Admission Diagnosis/Problem Admission Diagnosis/Problem Afib, Atrial fibrillation Subjective Update: Patient states he is doing well. Good appetite. No chest pain, shortness of breath, lightheadedness, or dizziness. Functional Status: Reports: Pain Controlled - Review of Systems General: Reports: No Symptoms HEENT: Reports: No Symptoms Pulmonary: Reports: No Symptoms Cardiovascular: Reports: No Symptoms Gastrointestinal: Reports: No Symptoms Musculoskeletal: Reports: No Symptoms - Patient Data Vitals - Most Recent: Last Vital Signs Temp 96.9 F 08/24/19 03:47 Pulse 61 08/24/19 10:00 Resp 18 08/24/19 10:00 BP 141/70 H 08/24/19 10:00 Pulse Ox 98 08/24/19 10:00 Orthostatic Blood Pressure [ 149/77 Standing] Orthostatic Blood Pressure [ 145/80 Sitting] Orthostatic Blood Pressure [ 151/80 Supine] Weight - Most Recent: 149 lb 9.6 oz I&O - Last 24 hours: Intake & Output 08/23/19 08/24/19 08/24/19 22:59 06:59 14:59 Intake Total 500 Balance 500 Med Orders - Current: Current Medications Acetaminophen (Tylenol) 650 mg PO Q4H PRN PRN Reason: Pain (Mild 1-3)/fever Apixaban (Eliquis) 5 mg PO BID KYLEE Last Admin: 08/24/19 08:42 Dose: 5 mg Diltiazem HCl (Dilacor Xr) 240 mg PO BEDTIME [facility] Last Admin: 08/23/19 20:14 Dose: 240 mg Ezetimibe (Zetia) 10 mg PO QPM [facility] Last Admin: 08/23/19 18:36 Dose: 10 mg Diltiazem HCl 100 mg/ Sodium (Chloride) 100 mls @ 10 mls/hr IV TITRATE [facility]; Protocol Last Titration: 08/21/19 05:35 Dose: 0 mg/hr, 0 mls/hr Losartan Potassium (Cozaar) 50 mg PO DAILY [facility] Last Admin: 08/24/19 08:41 Dose: 50 mg Metoprolol Succinate (Toprol Xl) 50 mg PO DAILY [facility] Last Admin: 08/24/19 08:39 Dose: 50 mg Ondansetron HCl (Zofran Odt) 4 mg PO Q6H PRN PRN Reason: nausea, able to take PO Ondansetron HCl (Zofran) 4 mg IV Q6H PRN PRN Reason: Nausea/Vomiting Sodium Chloride (Saline Flush) 10 ml FLUSH ASDIRECTED PRN PRN Reason: Keep Vein Open Last Admin: 08/19/19 12:19 Dose: 10 ml Discontinued Medications Diltiazem HCl (Cardizem) 10 mg IVPUSH ONETIME ONE Stop: 08/19/19 11:30 Last Admin: 08/19/19 11:54 Dose: 10 mg Diltiazem HCl (Cardizem) 60 mg PO Q6HR [facility] Last Admin: 08/19/19 21:21 Dose: Not Given Diltiazem HCl (Cardizem) 60 mg PO Q6H [facility] Last Admin: 08/21/19 03:43 Dose: 60 mg Diltiazem HCl (Cardizem) 20 mg IVPUSH ONETIME ONE Stop: 08/20/19 15:25 Last Admin: 08/20/19 15:26 Dose: 20 mg Diltiazem HCl (Cardizem) 90 mg PO Q6H [facility] Stop: 08/22/19 15:00 Last Admin: 08/22/19 13:55 Dose: 90 mg Diltiazem HCl (Cardizem Cd) 360 mg PO DAILY [facility] Diltiazem HCl (Cardizem Cd) 360 mg PO BEDTIME [facility] Last Admin: 08/22/19 20:14 Dose: 360 mg Sodium Chloride (Normal Saline) 1,000 mls @ 125 mls/hr IV ASDIRECTED [facility] Last Admin: 08/20/19 04:53 Dose: 125 mls/hr - Exam General: Reports: Alert, Oriented HEENT: Reports: Pupils Equal, Mucous Membr. Moist/[place] Neck: Reports: Supple Lungs: Reports: Clear to Auscultation, Normal Respiratory Effort Cardiovascular: Reports: Irregular Rhythm. Denies: Regular Rate GI/Abdominal Exam: Normal Bowel Sounds, Soft, Non-Tender, No Organomegaly, No Distention, No Abnormal Bruit, No Mass Extremities: Normal Inspection, Normal Range of Motion, Non-Tender, No Pedal Edema, Normal Capillary Refill Skin: Reports: Warm, Dry, Intact Psy/Mental Status: Reports: Alert, Normal Affect, Normal Mood *Q Meaningful Use (DIS) - VTE *Q VTE Anticoagulation Contraindications: Medical/Procedure Contrai
== END 2019-08-24 12:29 | disposition home or self-care (01) | DRG 308 ==
LOC: JD.ED 11:15 → JD.ICU 14:33 → JD.MS 08-20 13:03 → JD.ICU 08-20 15:52
PROVIDERS: ADMIT Family Medicine; ATTEND Family Medicine
DX: I48.91 Unspecified atrial fibrillation (principal); J96.01 Acute respiratory failure with hypoxia; E78.00 Pure hypercholesterolemia, unspecified; I10 Essential (primary) hypertension; Z85.828 Personal history of other malignant neoplasm of skin; E78.5 Hyperlipidemia, unspecified; I34.0 Nonrheumatic mitral (valve) insufficiency; I27.20 Pulmonary hypertension, unspecified; Z88.8 Allergy status to other drugs, medicaments and biological substances; Z79.899 Other long term (current) drug therapy; Z87.01 Personal history of pneumonia (recurrent); Z79.01 Long term (current) use of anticoagulants
CPT/HCPCS: 36415; 71045; 80053; 83735; 84100; 84443; 84484; 85025; 93005; 96361; 96374; 99285; J3490 ×2; J7030; J7050; 36600; 80048; 82803; 85379; 93010; 93306; 94762; 99222; 99231; 99232; 99239; 99284; A9270-GY

== ENCOUNTER 2020-12-13 10:54 | Emergency (ER) | payer MEDICARE, BC ==
[2020-12-13 11:51] VITALS: BP 172/85; PULSE 76
--- NOTE | 2020-12-13 12:16 | EDM.PDOC ---
ED HPI GENERAL MEDICAL PROBLEM - General Chief Complaint: Lower Extremity Injury/Pain Stated Complaint: SWOLLEN KNEE AND LEG Time Seen by Provider: 12/13/20 11:48 Source of Information: Reports: Patient, RN Notes Reviewed History Limitations: Reports: No Limitations - History of Present Illness INITIAL COMMENTS - FREE TEXT/NARRATIVE: Patient is an 79-year-old female who presents to the ER for a painful and swollen right knee/leg. Patient notes that she woke up this morning, and she noticed that her knee was slightly painful. She states that she had a little bit of pain in her right lateral calf yesterday. But thought it would get better. She went to scientologist today, and noticed after scientologist, it became increasingly more painful to walk on the leg, as to bear weight, or move it in any sort of direction much at all. When she lays completely still, it seems to not be painful at all. She is denying any numbness or tingling distal to the knee, she is having no pain in her hip. She notes she did not have any sort of slips trips or falls. There is a bit of swelling about the knees, worse on the superior aspect, when this is palpated it is not tender. The knee itself is not erythematous. Patient denies any other sick-like symptoms, fever/chills, cough/shortness of breath, nausea/vomiting/diarrhea. Patient's primary care provider is Shoshana Mitchell from the [facility]. She has a chronic specialist as well, has a history of atrial fibrillation, and is on Eliquis and has not missed a dose. Right Knee Pain Score (Numeric/FACES): 10 - Related Data Allergies Allergy/AdvReac Type Severity Reaction Status Date / Time [id number] Reductase AdvReac Mild Muscle Verified 12/13/20 11:51 Inhibitor Aches Home Meds: Home Meds Losartan Potassium 50 mg PO QPM 09/30/15 [History] Apixaban [Eliquis] 5 mg PO BID 08/19/19 [History] Ezetimibe 10 mg PO DAILY 08/19/19 [History] Metoprolol Succinate 50 mg PO BID 08/19/19 [History] Metoprolol Succinate [Toprol XL 50mg] 50 mg PO DAILY #30 tab.er 08/24/19 [Rx] dilTIAZem HCL [Diltiazem 24Hr ER] 180 mg PO BEDTIME #30 cap.sa.24h 08/24/19 [Rx] Hydrocodone/Acetaminophen [HYDROcodone-Acetaminophen 5-325 MG] 1 each PO Q6H PRN #12 tablet 12/13/20 [Rx] Past Medical History Cardiovascular History: Reports: Afib, High Cholesterol, Hypertension Respiratory History: Reports: Pneumonia, Recurrent TOOLING SPECIALIST History: Reports: Psychiatric History: Reports: None Oncologic (Cancer) History: Reports: Basal Cell Carcinoma, Squamous Cell Carcinoma - Infectious Disease History Infectious Disease History: Reports: None - Past Surgical History HEENT Surgical History: Reports: Adenoidectomy, Tonsillectomy Respiratory Surgical History: Reports: None Social & Family History - Caffeine Use Caffeine Use: Reports: None Review of Systems - Review of Systems Review Of Systems: Comprehensive ROS is negative, except as noted in HPI. ED EXAM, GENERAL - Physical Exam Exam: See Below Exam Limited By: No Limitations General Appearance: Alert, WD/WN, No Apparent Distress Respiratory/Chest: No Respiratory Distress, Lungs Clear, Normal Breath Sounds, No Accessory Muscle Use, Chest Non-Tender Cardiovascular: Normal Peripheral Pulses, Regular Rate, Rhythm, No Edema Peripheral Pulses: 2+: Dorsalis Pedis (L), Dorsalis Pedis (R) Extremities: No Pedal Edema, Normal Capillary Refill, Joint Swelling (about the right knee, worse on the superior aspect, this not tender), Limited Range of Motion (of right knee d/t pain). No: Louie's Sign, Increased Warmth, Redness Neurological: Alert, Oriented, Normal Cognition, No Motor/Sensory Deficits Psychiatric: Normal Affect, Normal Mood Skin Exam: Warm, Dry, Intact, Normal Color, No Rash Course - Vital Signs Last Recorded V/S: Last Vital Signs Temp 96.9 F 12/13/20 11:48 Pulse 76 12/13/20 11:48 Resp 16 12/13/20 11:48 BP 172/85 H 12/13/20 11:48 Pulse Ox 97 12/13/20 11:48 - Orders/Labs/Meds Orders: Active Orders 24 hr Category Date Time Status Knee wo Cont Rt [CT] Stat Exams 12/13/20 12:03 Ordered VL Duplex Lwr Ext Veins Ltd Rt [US] Stat Exams 12/13/20 12:03 Ordered JOSE Bandage [Elastic Wrap] [OM.PC] Routine Oth 12/13/20 14:32 Ordered Labs: Laboratory Tests 12/13/20 12/13/20 Range/Units 12:28 12:28 WBC 10.01 (3.98-10.04) K/mm3 RBC 4.78 (3.98-5.22) M/mm3 Hgb 15.0 (11.2-15.7) gm/dl Hct 45.2 H (34.1-44.9) % MCV 94.6 (79.4-94.8) fl MCH 31.4 (25.6-32.2) pg MCHC 33.2 (32.2-35.5) g/dl RDW Std Deviation 42.3 (36.4-46.3) fL Plt Count 185 (182-369) K/mm3 MPV 9.7 (9.4-12.3) fl Neut % (Auto) 80.1 H (34.0-71.1) % Lymph % (Auto) 11.1 L (19.3-51.7) % [place] % (Auto) 6.7 (4.7-12.5) % Eos % (Auto) 1.5 (0.7-5.8) Baso % (Auto) 0.4 (0.1-1.2) % Neut # (Auto) 8.02 H (1.56-6.13) K/mm3 Lymph # (Auto) 1.11 L (1.18-3.74) K/mm3 [place] # (Auto) 0.67 H (0.24-0.36) K/mm3 Eos # (Auto) 0.15 (0.04-0.36) K/mm3 Baso # (Auto) 0.04 (0.01-0.08) K/mm3 Sodium 138 (136-145) mEq/L Potassium 4.2 (3.5-5.1) mEq/L Chloride 102 (98-107) mEq/L Carbon Dioxide 28 (21-32) mEq/L Anion Gap 12.2 (5-15) BUN 23 H (7-18) mg/dL Creatinine 0.9 (0.55-1.02) mg/dL Est Cr Clr Drug Dosing 45.89 mL/min Estimated GFR (MDRD) > 60 (>60) mL/min BUN/Creatinine Ratio 25.6 H (14-18) Glucose 134 H (70-99) mg/dL Calcium 8.7 (8.5-10.1) mg/dL Total Bilirubin 0.6 (0.2-1.0) mg/dL AST 15 (15-37) U/L ALT 31 (14-59) U/L Alkaline Phosphatase 104 (46-116) U/L C-Reactive Protein <0.2 (<1.0) mg/dL Total Protein 7.2 (6.4-8.2) g/dl Albumin 3.6 (3.4-5.0) g/dl Globulin 3.6 gm/dL Albumin/Globulin Ratio 1.0 (1-2) Meds: Medications Discontinued Medications Generic Name Dose Route Start Last Admin Trade Name Freq PRN Reason Stop Dose Admin Hydrocodone Bitart/Acetaminophen 1 tab 12/13/20 14:30 Acetaminophen/Hydrocodone 325-5 Mg Tab PO 12/13/20 14:31 ONETIME ONE - Re-Assessments/Exams Free Text/Narrative Re-Assessment/Exam: 12/13/20 12:15 Patient presents to the ER for a swollen and painful right leg. This is just about the knee, and is worse on the superior portion of the knee. Although she is on blood thinners, we will get ultrasound of the leg, to rule out clot in nature due to the amount of swelling she has in the right leg versus the left leg. We will also get a CT of the knee for further evaluation. Patient did not have any sort of falls or trauma, so x-rays would not be very helpful at this time. Get basic labs as well to include a CBC, CMP, CRP to rule out any sort of bacterial process that could be causing issues. 12/13/20 13:23 Laboratory evaluation is unremarkable. Patient's imaging studies have been taken, awaiting official radiology read. 12/13/20 14:18 Ultrasound showed no sign of a DVT in the right lower extremity. CT did demonstrate a large suprapatellar hemarthrosis no evidence for fracture dislocation, there were some cystic degenerative changes within the anterior medial right tibial plateau which may represent the source of hemarthrosis, query aneurysmal bone cyst or subchondral cyst from chronic degenerative changes, they do recommend an MRI of the knee to exclude internal derangement of the joint space from ligamentous or meniscal injury. We will go ahead and Jose wrap the patient's knee, and give her some crutches to remain nonweightbearing I have written an MRI order for her to follow-up with her regular care provider, we will get them going home with general recommendations. Departure - Departure Time of Disposition: 14:34 Disposition: Home, Self-Care 01 Condition: Good Clinical Impression: Hemarthrosis Right knee pain Qualifiers: Chronicity: acute Qualified Code(s): M25.561 - Pain in right knee - Discharge Information *PRESCRIPTION DRUG MONITORING PROGRAM REVIEWED*: Yes *COPY OF PRESCRIPTION DRUG MONITORING REPORT IN PATIENT PHILLY: No Prescriptions: Hydrocodone/Acetaminophen [HYDROcodone-Acetaminophen 5-325 MG] 1 each PO Q6H PRN #12 tablet PRN Reason: Pain Instructions: Joint Pain, [id number] Referrals: Shoshana Mitchell NP [Primary Care Provider] - Forms: ED Department Discharge Care Plan Goals: You have been evaluated in the ED for your right knee pain. Your ultrasound demonstrated no sign of a DVT, CT does demonstrate a hemarth rosis, or blood in the joint, which is likely the cause of your pain. However what caused the hemarthrosis is still undetermined. An MRI order has been placed on your behalf, for further evaluation of your joint. Our x-ray department should call you hopefully tomorrow some time to arrange this appointment for this week, and you should follow-up with your provider, Ms. Mitchell for results of this. If you do not hear from our x-ray department, by Monday or Monday of this week, please call [phone] and asked to speak with radiology for scheduling purposes. Please use ice as tolerated to the affected area. You may elevate the affected area to provide further relief from swelling. You may take Tylenol 500 mg or ibuprofen 600mg q6 hrs for pain relief. Please do so until you have a tolerable level of pain with activity. Do not exceed 4000mg Tylenol, Do not exceed 3200mg ibuprofen in a 24 hour time period. You were given a prescription for a strong pain medication, hydrocodone /acetaminophen 5/325, please take 1 tab every 6 hours as needed for pain not relieved by Tylenol or ibuprofen alone. Please note this does contain Tylenol in it, so do not take more than 4000 mg in a 24-hour time span. These medications can be addictive, so please take as few as possible to achieve adequate pain control. These meds can also be quite constipating, recommend that you increase your oral fluid intake and take a stool softener like MiraLAX while taking these medications. Your prescription was electronically sent to [facility] located near [facility], this pharmacy is only open from 12 to 4 PM on Sundays, you will need to go there during this timeframe to obtain this medication and take as prescribed. Please return to ED if your symptoms should change or worsen. Sepsis Event Note (ED) - Focused Exam Vital Signs: Vital Signs Temp Pulse Resp BP Pulse Ox 12/13/20 11:48 96.9 F 76 16 172/85 H 97 - My Orders Last 24 Hours: My Active Orders 12/13/20 12:03 Knee wo Cont Rt [CT] Stat VL Duplex Lwr Ext Veins Ltd Rt [US] Stat 12/13/20 14:32 JOSE Bandage [Elastic Wrap] [OM.PC] Routine - Assessment/Plan Last 24 Hours: My Active Orders 12/13/20 12:03 Knee wo Cont Rt [CT] Stat VL Duplex Lwr Ext Veins Ltd Rt [US] Stat 12/13/20 14:32 JOSE Bandage [Elastic Wrap] [OM.PC] Routine
[2020-12-13] MEDS ORDERED: Acetaminophen/HYDROcodone 325-5 MG Tab PO ONE (14:30)
--- NOTE | 2020-12-14 07:40 | US ---
Right lower extremity deep venous ultrasound: Duplex and color Doppler evaluation was obtained of the right common femoral, proximal greater saphenous, superficial femoral, popliteal, posterior tibial and peroneal veins. Left common femoral vein was also evaluated. Comparison: No prior venous imaging is available. Findings: Normal phasic flow, augmentation and compression are seen. Complicated fluid collection is seen anteriorly presumably due to joint effusion/hematoma. Impression: 1. No findings of deep venous thrombosis within the right lower extremity or within the left common femoral vein. 2. Presumed effusion/hematoma within the joint. Diagnostic code #2 I agree with preliminary report from [facility], finalized on 12/13/20, 3:01 PM CDT, code 1
--- NOTE | 2020-12-15 08:31 | CT ---
CT right knee Technique: Multiple axial sections were obtained through the right knee. Reconstructed coronal and sagittal images were obtained. Comparison: No prior knee study is available. Findings: Artifact is noted causing deformity of the distal diaphysis of the femur. There is a joint effusion being seen which is slightly increased in density presumably due to possible hemarthrosis. Moderate narrowing of the medial joint compartment is seen. Small osteophytes are noted off the medial and lateral knee. Small osteophytes are noted off the intercondylar notch of the distal femur. Mild hypertrophy is seen within the tibial spines. There is cystic change causing cortical irregularity within the anterior and medial tibia presumably degenerative in etiology. Scattered osteopenia is noted. No definite acute fracture is seen. Impression: 1. Large joint effusion possibly due to hemarthrosis. 2. Degenerative change as noted above with scattered areas of osteopenia. 3. Cystic change within the anterior and medial tibia which is most likely degenerative in etiology. 4. No acute osseous abnormality is appreciated within the right knee. 5. If patient's symptoms warrant further evaluation, knee MRI could be obtained. Diagnostic code #3 I agree with preliminary report from [facility], finalized on 12/13/20, 3:07 PM CDT [facility]
== END 2020-12-13 15:00 | disposition home or self-care (01) ==
LOC: JD.ED 10:54
DX: M25.061 Hemarthrosis, right knee (principal); I48.91 Unspecified atrial fibrillation; I10 Essential (primary) hypertension; Z88.8 Allergy status to other drugs, medicaments and biological substances; Z79.01 Long term (current) use of anticoagulants; Z79.899 Other long term (current) drug therapy
CPT/HCPCS: 36415; 73700; 80053; 85025; 86140; 93971; 99284; A9270

== ENCOUNTER → 2022-09-15 | Day surgery (SDC) | payer MEDICARE, BC ==
[~2022-09-15] MED LIST: Lactated Ringers 1,000 ML IV SCH; Lidocaine 1% 2 ML ONE; Ondansetron 4 MG/2 ML SDV IVPUSH PRN; Propofol 200 MG/20 ML SDV ONE; Sodium Chloride 0.9% 10 ML Syringe FLUSH PRN; Sodium Chloride 0.9% 10 ML Syringe FLUSH SCH; ePHEDrine 50 MG/ML SDV ONE; fentaNYL 100 MCG/2 ML SDV ONE
[2022-09-15 13:46] VITALS: BP 121/78; PULSE 71
== END | disposition home or self-care (01) ==
LOC: JD.SDS 07:58
PROVIDERS: ATTEND Surgery
DX: K57.30 Diverticulosis of large intestine without perforation or abscess without bleeding (principal); K64.4 Residual hemorrhoidal skin tags; Z53.09 Procedure and treatment not carried out because of other contraindication; I11.9 Hypertensive heart disease without heart failure; I43 Cardiomyopathy in diseases classified elsewhere; E78.00 Pure hypercholesterolemia, unspecified; G47.30 Sleep apnea, unspecified; I48.91 Unspecified atrial fibrillation; Z88.8 Allergy status to other drugs, medicaments and biological substances; Z85.828 Personal history of other malignant neoplasm of skin; Z79.899 Other long term (current) drug therapy
CPT/HCPCS: 45378; J2704; J3010; J7120; J3490

== ENCOUNTER 2024-10-30 13:00 | Emergency (ER) | payer MEDICARE, BC ==
[2024-10-30 16:05] VITALS: BP 125/74; PULSE 85
== END 2024-10-30 15:05 | disposition home or self-care (01) ==
LOC: JD.ED 13:00
DX: S42.211A Unspecified displaced fracture of surgical neck of right humerus, initial encounter for closed fracture (principal); I10 Essential (primary) hypertension; I48.91 Unspecified atrial fibrillation; Z79.899 Other long term (current) drug therapy; Z79.01 Long term (current) use of anticoagulants; Z88.8 Allergy status to other drugs, medicaments and biological substances; W01.198A Fall on same level from slipping, tripping and stumbling with subsequent striking against other object, initial encounter
CPT/HCPCS: 70450; 70450-26; 73060-26-RT; 73060-RT; 73070-26-RT; 73070-RT; 99284